=== PATIENT | male | born 1980 | race African-American/Black ===

== ENCOUNTER 2017-09-19 23:16 | Emergency (ER) | payer SELFPAY ==
[~2017-09-19] VITALS: Ht 180.3 cm; Wt 73.0 kg
[2017-09-20 05:47] VITALS: BP 125/88
== END 2017-09-20 06:34 | disposition left against medical advice (07) ==
LOC: ER 23:16
DX: K62.5 Hemorrhage of anus and rectum (principal); Z53.21 Procedure and treatment not carried out due to patient leaving prior to being seen by health care provider
CPT/HCPCS: Z7610 ×2